=== PATIENT | male | born 1975 | race Caucasian/White ===

== ENCOUNTER 2016-08-16 23:18 | Emergency (ER) | payer OTHER ==
[~2016-08-16 23:18] MED LIST: ALLEGRA PO; ALLERGY MED; AMOXICILLIN500 M1 PO; ASPIRIN81 MG PO; DICLOFENAC PO; IBUPROFEN PO; IBUPROFEN800 MG PO; IMITREX PO; IMITREX6 MG/0.5 M SQ; METOPROLOL SUCC25 MG PO; MEVACOR PO; NORCO 10/325 TA1 TAB PO; PERCOCET5/325 PO; PHENERGAN PO; TOPAMAX200 MG PO; ZOFRANODT PO
== END 2016-08-17 00:43 | disposition home or self-care (01) ==
LOC: SED 23:18
DX: K64.4 Residual hemorrhoidal skin tags (principal); G43.909 Migraine, unspecified, not intractable, without status migrainosus; E78.5 Hyperlipidemia, unspecified; Z98.890 Other specified postprocedural states; F17.200 Nicotine dependence, unspecified, uncomplicated; Z79.899 Other long term (current) drug therapy; Z91.018 Allergy to other foods; Z88.8 Allergy status to other drugs, medicaments and biological substances
CPT/HCPCS: 99283